=== PATIENT | female | born 1990 | race Caucasian/White ===

== ENCOUNTER 2022-07-25 08:00 | Emergency (ER) | payer MEDICAID ==
[~2022-07-25] VITALS: Ht 154.9 cm; Wt 97.7 kg
[2022-07-25 08:05] VITALS: BP 122/87
[2022-07-25 08:28] LABS: COVID AG,FIA SOURCE NASAL SWAB
[2022-07-25 08:50] LABS: INFLUENZA TYPE A NEGATIVE FOR TYPE A (NEGATIVE); INFLUENZA TYPE B NEGATIVE FOR TYPE B (NEGATIVE)
[2022-07-25] MEDS ORDERED: AZIT250T9 PO (09:40)
== END 2022-07-25 10:08 | disposition home or self-care (01) ==
LOC: EMS 08:04
DX: J32.9 Chronic sinusitis, unspecified (principal); R05.9 Cough, unspecified; Z20.822 Contact with and (suspected) exposure to COVID-19
CPT/HCPCS: 71045; 87804; 99284